=== PATIENT | female | born 1955 | race Caucasian/White ===

== ENCOUNTER 2019-07-13 12:26 | Emergency (ER) | payer OTHER ==
[~2019-07-13] VITALS: Ht 152.4 cm; Wt 55.3 kg
[~2019-07-13 12:26] MED LIST: ASPI81TA31 PO; CALC-881 PO; FLUC200T8 PO; HYDR25TA4 PO; LOVA20TA2 PO; METF-494 PO
--- NOTE | 2019-07-13 12:40 | NUR ---
PT IS IN ROOM #1B. DR TRIPP EVALUATED THE PT.
[2019-07-13] MEDS ORDERED: ACETAMINOPHEN ES 500 MG TABLET PO ONE (12:45)
[2019-07-13] MEDS ORDERED: ACETAMINOPHEN ES 500 MG TABLET ONE (13:02)
[2019-07-13 14:12] VITALS: BP 129/78
--- NOTE | 2019-07-13 14:12 | NUR ---
PT WAS D/C'd TO HOME. D/C INSTRUCTIONS GIVEN TO THE PT AND TO HER SON BY DR TRIPP.
== END 2019-07-13 14:13 | disposition home or self-care (01) ==
LOC: ER 12:26
DX: R50.9 Fever, unspecified (principal); M79.10 Myalgia, unspecified site; J02.9 Acute pharyngitis, unspecified; R51 Headache; E11.9 Type 2 diabetes mellitus without complications; Z90.710 Acquired absence of both cervix and uterus; Z79.82 Long term (current) use of aspirin; Z79.899 Other long term (current) drug therapy
CPT/HCPCS: 36415; 86403; 87070; 87400; A4663; A9150

== ENCOUNTER 2021-01-17 17:04 | Emergency (ER) | payer MEDICARE, OTHER ==
[~2021-01-17] VITALS: Ht 157.5 cm; Wt 54.4 kg
--- NOTE | 2021-01-17 17:12 | NUR ---
Dr Headley at the bedside for MSE.
[2021-01-17] MEDS ORDERED: HYDROCODONE/APAP 5-325MG TABLET ONE (17:26)
[2021-01-17] MEDS ORDERED: HYDROCODONE/APAP 5-325MG TABLET PO ONE (17:30)
[2021-01-17] MEDS ORDERED: HYDR-4209 PO (18:03)
--- NOTE | 2021-01-17 18:14 | NUR ---
Patient discharged to home in stable condition. Written and verbal after care instructions given, educated pt and family regarding use of narcotic pain medication. Patient verbalizes understanding of instructions. Stressed follow up or return to ER for worsening s/s. Pt left ER w/ steady giat accompained by .
[2021-01-17 18:16] VITALS: BP 135/66
== END 2021-01-17 18:16 | disposition home or self-care (01) ==
LOC: ER 17:05
DX: S20.212A Contusion of left front wall of thorax, initial encounter (principal); X58.XXXA Exposure to other specified factors, initial encounter; Y92.89 Other specified places as the place of occurrence of the external cause; R03.0 Elevated blood-pressure reading, without diagnosis of hypertension; Z79.82 Long term (current) use of aspirin; Z79.899 Other long term (current) drug therapy
CPT/HCPCS: 71101; A4663

== ENCOUNTER 2021-05-18 16:44 | Emergency (ER) | payer MEDICARE, OTHER ==
[~2021-05-18] VITALS: Ht 154.9 cm; Wt 54.4 kg
[~2021-05-18 16:44] MED LIST changes: +HYDR-4209 PO
[2021-05-18] MEDS ORDERED: ONDANSETRON ODT 4 MG TAB.RAPDIS ONE (17:24)
[2021-05-18 17:25] LABS: HEMATOCRIT 38.8 % (31.2-41.9); MEAN CORPUSCULAR HEMOGLOBIN 31.3 uug (24.7-32.8); PLATELET COUNT (AUTO) 256 K/uL (179-408)
[2021-05-18 17:26] LABS: CREATININE 0.6 mg/dL (0.6-1.3); POTASSIUM 3.1 mmol/L (3.5-5.1)
[2021-05-18 17:32] LABS: BILIRUBIN,DIRECT 0.1 mg/dL (0.0-0.2); BILIRUBIN,TOTAL 0.5 mg/dL (0.2-1.0); TOTAL PROTEIN, SERUM 7.6 g/dL (6.4-8.2)
[2021-05-18] MEDS ORDERED: ASPIRIN 81 MG TAB.CHEW ONE (17:55)
[2021-05-18 18:02] LABS: *CLARITY,URINE CLEAR (CLEAR); *COLOR,URINE YELLOW (YELLOW)
[2021-05-18 18:03] LABS: *BILIRUBIN,URIN NEGATIVE (NEGATIVE); *BLOOD, URINE NEGATIVE (NEGATIVE); *KETONES,URINE NEGATIVE (NEGATIVE); LEUKOCYTE ESTERASE ,URINE TRACE (NEGATIVE); NITRITE, URINE NEGATIVE (NEGATIVE); PH,URINE 7.5 (5.0-8.0); UGLUCOSE NEGATIVE (NEGATIVE)
[2021-05-18 18:34] VITALS: BP 138/77
== END 2021-05-18 18:36 | disposition home or self-care (01) ==
LOC: ER 16:44
DX: R42 Dizziness and giddiness (principal); R11.0 Nausea; E11.9 Type 2 diabetes mellitus without complications; Z79.84 Long term (current) use of oral hypoglycemic drugs; E87.6 Hypokalemia; Z90.710 Acquired absence of both cervix and uterus
CPT/HCPCS: 36415; 70030-TC; 70450; 83690; 85025; 93005; A4663; Q0162